=== PATIENT | male | born 1955 | race Two or more races ===

== ENCOUNTER 2016-06-05 22:00 | Inpatient (IN) | payer SELFPAY ==
[~2016-06-05] VITALS: Ht 180.3 cm; Wt 101.5 kg
[2016-06-05] MEDS ORDERED: ACETAMINOPHEN 325 MG TAB PO ONE (23:15)
[2016-06-06 00:04] LABS: Urine Bilirubin Negative (Negative); Urine Color Yellow (Yellow); Urine Nitrite Negative (Negative); Urine RBC 2 /hpf (0 - 3); Urine Squamous Epithelial Cell FEW /hpf (<5); Urine Urobilinogen Normal (Negative); Urine pH 5.5 (5.0-8.0)
[2016-06-06 00:04] LABS: Basophils # (auto) 0 uL; Basophils % (auto) 0.3 % (0.0-2.0); DEFINITIVE VIEW TRANSMISSION; Eosinophils # (auto) 0.1 uL; Eosinophils % (auto) 0.5 % (0.0-7.0); Hematocrit 40.7 % (41.0-53.0); Hemoglobin 13.3 g/dL (13.5-17.5); Lymphocytes # (auto) 1.1 uL; Lymphocytes % (auto) 9.2 % (10.0-50.0); Mean Corpuscular Hemoglobin 25.4 pg (28.0-32.0); Mean Corpuscular Hgb Conc. 32.8 g/dL (32.0-36.0); Mean Corpuscular Volume 77.5 fL (80.0-100.0); Mean Platelet Volume 7.3 fL (7.4-10.4); Monocytes # (auto) 0.7 uL; Monocytes % (auto) 5.6 % (0.0-12.0); Neutrophils # (auto) 10.2 uL; Neutrophils % (auto) 84.4 % (37.0-80.0); Platelet Count (auto) 425 10^3/uL (140-450); Red Cell Distribution Width 13.3 % (11.6-16.0); White Blood Cell 12.1 10^3/uL (4.4-10.8)
[2016-06-06 00:07] LABS: Urine Blood 1+ /uL (Negative); Urine Glucose 4+ mg/dL (Normal); Urine Ketone 2+ (Negative)
[2016-06-06 00:19] LABS: INR 0.95 (0.9-1.15); Partial Thromboplastin Time 26.6 sec (22.64-33.71); Prothrombin Time 10.3 sec (9.37-12.3)
[2016-06-06 00:25] LABS: Albumin 2.8 g/dL (3.4-5.0); Anion Gap 10 (5-15); Aspartate Aminotransferase 10 U/L (15-37); BUN/Creatinine Ratio 17.1; Blood Urea Nitrogen 25 mg/dL (7-18); Calcium 8.3 mg/dL (8.5-10.1); Carbon Dioxide 23 mmol/L (21-32); Chloride 99 mmol/L (98-107); GFR African American 63 mL/min; GFR Non-African American 52 mL/min; Glucose 358 mg/dL (74-106); Potassium 4.3 mmol/L (3.5-5.1); Sodium 132 mmol/L (136-145)
[2016-06-06 00:30] LABS: Alkaline Phosphatase 73 U/L (45-117); Bilirubin, Total 0.4 mg/dL (0.2-1.0); Total Protein 8.2 g/dL (6.4-8.2)
[2016-06-06 00:37] LABS: B-Type Natriuretic Peptide 67.5 pg/mL (0-100); Temperature: 21.9 C (20.0-25.0)
[2016-06-06] MEDS ORDERED: cefTRIAXone 1GM/50ML D5W 50 ML IV ONE (00:45)
[2016-06-06] MEDS ORDERED: SODIUM CHLORIDE 0.9% 1,000 ML IV ONE (00:45)
[2016-06-06] MEDS ORDERED: VANCOMYCIN 1GM/250ML D5W 250 ML IV ONE (00:45)
[2016-06-06] MEDS ORDERED: InsuLIN REG 1unit/0.01ml Soln (100units/ml) ONE (02:03)
[2016-06-06] MEDS ORDERED: InsuLIN REG 1unit/0.01ml Soln (100units/ml) IV ONE (02:15)
[2016-06-06] MEDS: SODIUM CHLORIDE 0.9% 1,000 ML IV SCH ×2 (06:56→21:14)
[2016-06-06] MEDS ORDERED: DEXTROSE (50%) 50ML SYRG IV PRN (07:00)
[2016-06-06] MEDS ORDERED: MORPHINE SULF INJ 2 MG/ML SYRINGE 1ML IV PRN (07:00)
[2016-06-06] MEDS ORDERED: ONDANSETRON HCL 4 MG/2 ML VIAL IV PRN (07:00)
[2016-06-06] MEDS ORDERED: HYDROcodone-ACET 5/325MG TAB PO PRN (07:00)
[2016-06-06] MEDS ORDERED: ACETAMINOPHEN 325 MG TAB PO PRN (07:00)
[2016-06-06] MEDS: InsuLIN REG 1unit/0.01ml Soln (100units/ml) SC SCH ×4 (08:00→21:02)
[2016-06-06] MEDS: ACCU-CHEK COMFORT CURVE STRIP VI SCH ×4 (08:00→21:13)
[2016-06-06 09:00] VITALS: BP 144/71
[2016-06-06] MEDS ORDERED: IBUP200T76 PO (09:35)
[2016-06-06] MEDS ORDERED: INFLUENZA QUAD 2016-2017 0.5 ML SYRG IM ONE (09:45)
[2016-06-06] MEDS ORDERED: PNEUMOCOCCAL VACC POLYS 25 MCG/0.5 ML VIAL IM ONE (09:45)
[2016-06-06] MEDS: FAMOTIDINE 20 MG TAB PO SCH ×2 (09:46→21:14)
[2016-06-06] MEDS: ENOXAPARIN SOD 40 MG/0.4 ML SYRINGE SC SCH (09:46)
[2016-06-06] MEDS ORDERED: VANCOMYCIN PER PHARMACY 0 MG IV SCH (12:00)
[2016-06-06 13:00] VITALS: BP 147/74
[2016-06-06] MEDS: VANCOMYCIN 1GM/250ML D5W 250 ML IV SCH (14:44)
[2016-06-06 17:10] VITALS: BP 143/69
[2016-06-06 22:00] VITALS: BP 123/58
[2016-06-07] MEDS: ACCU-CHEK COMFORT CURVE STRIP VI SCH ×6 (00:41→20:29)
[2016-06-07] MEDS: cefTRIAXone 1GM/50ML D5W 50 ML IV SCH (00:50)
[2016-06-07] MEDS: VANCOMYCIN 1GM/250ML D5W 250 ML IV SCH ×2 (02:10→14:01)
[2016-06-07] MEDS: InsuLIN REG 1unit/0.01ml Soln (100units/ml) SC SCH ×6 (04:27→20:30)
[2016-06-07 05:30] VITALS: BP 133/77
[2016-06-07 07:05] LABS: Basophils # (auto) 0 uL; Basophils % (auto) 0.4 % (0.0-2.0); DEFINITIVE VIEW TRANSMISSION; Eosinophils # (auto) 0.1 uL; Eosinophils % (auto) 1.3 % (0.0-7.0); Hematocrit 36.6 % (41.0-53.0); Hemoglobin 11.9 g/dL (13.5-17.5); Lymphocytes # (auto) 1.4 uL; Lymphocytes % (auto) 15.8 % (10.0-50.0); Mean Corpuscular Hemoglobin 25.5 pg (28.0-32.0); Mean Corpuscular Hgb Conc. 32.5 g/dL (32.0-36.0); Mean Corpuscular Volume 78.4 fL (80.0-100.0); Mean Platelet Volume 7.6 fL (7.4-10.4); Monocytes # (auto) 0.6 uL; Monocytes % (auto) 6.7 % (0.0-12.0); Neutrophils # (auto) 6.5 uL; Neutrophils % (auto) 75.8 % (37.0-80.0); Platelet Count (auto) 350 10^3/uL (140-450); Red Cell Distribution Width 13.5 % (11.6-16.0); White Blood Cell 8.6 10^3/uL (4.4-10.8)
[2016-06-07 07:21] LABS: Potassium 3.8 mmol/L (3.5-5.1)
[2016-06-07 07:29] LABS: Albumin 2.2 g/dL (3.4-5.0); BUN/Creatinine Ratio 19.3; Bilirubin, Total 0.3 mg/dL (0.2-1.0); Total Protein 6.8 g/dL (6.4-8.2)
[2016-06-07 08:00] VITALS: BP 123/73
[2016-06-07 09:00] VITALS: BP 154/82
[2016-06-07] MEDS: FAMOTIDINE 20 MG TAB PO SCH ×2 (09:27→21:12)
[2016-06-07] MEDS: ENOXAPARIN SOD 40 MG/0.4 ML SYRINGE SC SCH (09:28)
[2016-06-07] MEDS: SODIUM CHLORIDE 0.9% 1,000 ML IV SCH (11:29)
[2016-06-07 13:00] VITALS: BP 111/51
[2016-06-07 17:00] VITALS: BP 132/69
[2016-06-07 22:20] VITALS: BP 116/59
[2016-06-08] MEDS: ACCU-CHEK COMFORT CURVE STRIP VI SCH ×4 (00:17→11:29)
[2016-06-08] MEDS: InsuLIN REG 1unit/0.01ml Soln (100units/ml) SC SCH ×4 (00:18→11:29)
[2016-06-08] MEDS: cefTRIAXone 1GM/50ML D5W 50 ML IV SCH (01:00)
[2016-06-08] MEDS: VANCOMYCIN 1GM/250ML D5W 250 ML IV SCH ×2 (02:58→14:00)
[2016-06-08] MEDS: SODIUM CHLORIDE 0.9% 1,000 ML IV SCH (02:58)
[2016-06-08 05:07] VITALS: BP 135/67
[2016-06-08 07:30] VITALS: BP 148/92
[2016-06-08 09:00] VITALS: BP 148/102
[2016-06-08] MEDS: FAMOTIDINE 20 MG TAB PO SCH (11:21)
[2016-06-08] MEDS: ENOXAPARIN SOD 40 MG/0.4 ML SYRINGE SC SCH (11:21)
[2016-06-08] MEDS ORDERED: PIPERACILLIN-TAZOB 3.375GM/D5W100ML IV SCH (12:00)
[2016-06-08 13:00] VITALS: BP 147/80
[2016-06-08] MEDS ORDERED: cefTAZidime 2 GM in D5W 5% 100 ML IV SCH (14:00)
== END 2016-06-08 14:10 | disposition home or self-care (01) | DRG 638 ==
LOC: ER 22:06 → OVERFLOW 22:07 → EAST 06-06 08:12
PROVIDERS: ADMIT Nurse Practitioner; ATTEND Family Medicine
PROC: 3E0234Z Introduction of Serum, Toxoid and Vaccine into Muscle, Percutaneous Approach (ICD-10-PCS; principal; 2016-06-06)
DX: E11.621 Type 2 diabetes mellitus with foot ulcer (principal); L03.115 Cellulitis of right lower limb; E13.10 Other specified diabetes mellitus with ketoacidosis without coma; L97.519 Non-pressure chronic ulcer of other part of right foot with unspecified severity; Z23 Encounter for immunization; E87.6 Hypokalemia; E11.40 Type 2 diabetes mellitus with diabetic neuropathy, unspecified; E11.51 Type 2 diabetes mellitus with diabetic peripheral angiopathy without gangrene
CPT/HCPCS: 36415; 71010; 73700; 80053; 80202; 81001; 82010; 82962; 83036; 83605; 83880; 84484; 85025; 85610; 85730; 87040; 87077; 87186; 87205; 93005; 93923; 96365; 96367; 96375; J0696; J1815; J2543; J7060

== ENCOUNTER → 2016-07-12 | Emergency (ER) | payer SELFPAY ==
[~2016-07-12] VITALS: Ht 177.8 cm; Wt 81.6 kg
[~2016-07-12] MED LIST: ACETAMINOPHEN 325 MG TAB PO ONE; IBUP200T76 PO; SODIUM CHLORIDE 0.9% 1,000 ML IV ONE
[2016-07-12 19:21] LABS: Basophils # (auto) 0 uL; Basophils % (auto) 0.3 % (0.0-2.0); DEFINITIVE VIEW TRANSMISSION; Eosinophils # (auto) 0 uL; Eosinophils % (auto) 0.3 % (0.0-7.0); Hematocrit 37.8 % (41.0-53.0); Hemoglobin 12.4 g/dL (13.5-17.5); Lymphocytes # (auto) 1.1 uL; Lymphocytes % (auto) 9.8 % (10.0-50.0); Mean Corpuscular Hemoglobin 25.3 pg (28.0-32.0); Mean Corpuscular Hgb Conc. 32.9 g/dL (32.0-36.0); Mean Platelet Volume 6.6 fL (7.4-10.4); Monocytes # (auto) 0.6 uL; Monocytes % (auto) 5.4 % (0.0-12.0); Neutrophils # (auto) 9.4 uL; Neutrophils % (auto) 84.2 % (37.0-80.0); Platelet Count (auto) 471 10^3/uL (140-450); Red Cell Distribution Width 13.9 % (11.6-16.0); White Blood Cell 11.1 10^3/uL (4.4-10.8)
[2016-07-12 19:43] LABS: Albumin 3.1 g/dL (3.4-5.0); Anion Gap 10 (5-15); Aspartate Aminotransferase 11 U/L (15-37); BUN/Creatinine Ratio 19.5; Blood Urea Nitrogen 34 mg/dL (7-18); Calcium 8.8 mg/dL (8.5-10.1); Carbon Dioxide 27 mmol/L (21-32); Chloride 101 mmol/L (98-107); GFR African American 52 mL/min; GFR Non-African American 43 mL/min; Glucose 212 mg/dL (74-106); Magnesium 2.3 mg/dL (1.6-2.6); Sodium 138 mmol/L (136-145)
[2016-07-12 19:48] LABS: Alkaline Phosphatase 64 U/L (45-117); Bilirubin, Total 0.5 mg/dL (0.2-1.0); Total Protein 8.3 g/dL (6.4-8.2)
[2016-07-13 02:28] VITALS: BP 126/66
== END | disposition home or self-care (01) ==
LOC: ER 18:31
DX: J06.9 Acute upper respiratory infection, unspecified (principal); E11.65 Type 2 diabetes mellitus with hyperglycemia; E11.621 Type 2 diabetes mellitus with foot ulcer; E86.0 Dehydration; Z79.4 Long term (current) use of insulin
CPT/HCPCS: 36415; 71020; 80053; 82962; 83735; 84484; 85025; 87040; 93005; 96360

== ENCOUNTER 2016-08-09 22:15 | Inpatient (IN) | payer MEDICAID ==
[~2016-08-09] VITALS: Ht 180.3 cm; Wt 93.7 kg
[~2016-08-09 22:15] MED LIST changes: -ACETAMINOPHEN 325 MG TAB PO ONE; -SODIUM CHLORIDE 0.9% 1,000 ML IV ONE
[2016-08-09 23:37] LABS: Basophils # (auto) 0 uL; CONDITION AutoValidated; DEFINITIVE SEE PRINTOUT; Eosinophils # (auto) 0.1 uL; Eosinophils % (auto) 0.7 % (0.0-7.0); Hematocrit 34.8 % (41.0-53.0); Hemoglobin 11.4 g/dL (13.5-17.5); Lymphocytes # (auto) 0.9 uL; Lymphocytes % (auto) 6.2 % (10.0-50.0); Mean Corpuscular Hemoglobin 24.7 pg (28.0-32.0); Mean Corpuscular Hgb Conc. 32.9 g/dL (32.0-36.0); Mean Corpuscular Volume 75.1 fL (80.0-100.0); Monocytes # (auto) 0.8 uL; Monocytes % (auto) 5.8 % (0.0-12.0); Neutrophils # (auto) 12.6 uL; Neutrophils % (auto) 87.3 % (37.0-80.0); Platelet Count (auto) 620 10^3/uL (140-450); Red Cell Distribution Width 13.9 % (11.6-16.0); White Blood Cell 14.4 10^3/uL (4.4-10.8)
[2016-08-09 23:54] LABS: Albumin 2.6 g/dL (3.4-5.0); Anion Gap 9 (5-15); Aspartate Aminotransferase 18 U/L (15-37); Blood Urea Nitrogen 27 mg/dL (7-18); Calcium 8.7 mg/dL (8.5-10.1); Carbon Dioxide 26 mmol/L (21-32); Chloride 97 mmol/L (98-107); Magnesium 2.3 mg/dL (1.6-2.6); Potassium 5.2 mmol/L (3.5-5.1); Sodium 132 mmol/L (136-145)
[2016-08-09 23:55] LABS: BUN/Creatinine Ratio 17.6; Bilirubin, Total 0.3 mg/dL (0.2-1.0); GFR African American 60 mL/min; GFR Non-African American 50 mL/min; Total Protein 8.3 g/dL (6.4-8.2)
[2016-08-09 23:58] LABS: Alkaline Phosphatase 101 U/L (45-117)
[2016-08-10 00:05] LABS: Glucose 454 mg/dL (74-106)
[2016-08-10] MEDS ORDERED: SODIUM CHLORIDE 0.9% 1,000 ML IV ONE (06:30)
[2016-08-10] MEDS ORDERED: InsuLIN REG 1unit/0.01ml Soln (100units/ml) SC ONE (06:30)
[2016-08-10] MEDS ORDERED: HYDROcodone-ACET 5/325MG TAB PO PRN (10:30)
[2016-08-10] MEDS ORDERED: cefTRIAXone 1GM/50ML D5W 50 ML IV ONE (10:30)
[2016-08-10] MEDS ORDERED: ACETAMINOPHEN 325 MG TAB PO PRN (10:30)
[2016-08-10] MEDS ORDERED: CLINDAMYCIN 300MG IV 50 ML IV ONE (10:30)
[2016-08-10] MEDS ORDERED: DEXTROSE (50%) 50ML SYRG IV PRN (10:30)
[2016-08-10] MEDS ORDERED: ONDANSETRON HCL 4 MG/2 ML VIAL IV PRN (10:30)
[2016-08-10] MEDS ORDERED: DOCUSATE SOD 100 MG CAP PO PRN (10:30)
[2016-08-10] MEDS ORDERED: TEMAZEPAM 15 MG CAP PO PRN (10:30)
[2016-08-10] MEDS ORDERED: MORPHINE SULF INJ 2 MG/ML SYRINGE 1ML IV PRN (10:30)
[2016-08-10] MEDS: SODIUM CHLORIDE 0.9% 1,000 ML IV SCH (10:50)
[2016-08-10] MEDS: MULTIPLE VITAMIN TAB PO SCH (11:05)
[2016-08-10] MEDS: ASCORBIC ACID 500 MG TAB PO SCH ×2 (11:05→22:06)
[2016-08-10] MEDS: ZINC SULFATE 220 MG CAP PO SCH (11:05)
[2016-08-10] MEDS: ACCU-CHEK COMFORT CURVE STRIP VI SCH ×3 (11:19→22:06)
[2016-08-10] MEDS: InsuLIN REG 1unit/0.01ml Soln (100units/ml) SC SCH ×3 (11:19→22:06)
[2016-08-10] MEDS: Boost Glucose Control 8 Ounces PO SCH ×3 (12:00→22:00)
[2016-08-10 16:29] VITALS: BP 131/73
[2016-08-10 22:00] VITALS: BP 117/73
[2016-08-11] MEDS: SODIUM CHLORIDE 0.9% 1,000 ML IV SCH ×2 (03:47→22:23)
[2016-08-11 05:16] LABS: Basophils # (auto) 0 uL; Basophils % (auto) 0.3 % (0.0-2.0); CONDITION Y; DEFINITIVE SEE PRINTOUT; Eosinophils # (auto) 0.1 uL; Hemoglobin 10.8 g/dL (13.5-17.5); Lymphocytes # (auto) 1.7 uL; Lymphocytes % (auto) 16.5 % (10.0-50.0); Mean Corpuscular Hemoglobin 24.7 pg (28.0-32.0); Mean Corpuscular Hgb Conc. 32.7 g/dL (32.0-36.0); Mean Corpuscular Volume 75.4 fL (80.0-100.0); Mean Platelet Volume 6.8 fL (7.4-10.4); Monocytes % (auto) 9.8 % (0.0-12.0); Neutrophils # (auto) 7.3 uL; Neutrophils % (auto) 72.4 % (37.0-80.0); Platelet Count (auto) 565 10^3/uL (140-450); Red Cell Distribution Width 14.4 % (11.6-16.0); White Blood Cell 10.1 10^3/uL (4.4-10.8)
[2016-08-11 05:27] VITALS: BP 116/74
[2016-08-11 05:29] LABS: Prothrombin Time 10.9 sec (9.37-12.3)
[2016-08-11 05:43] LABS: Albumin 2.3 g/dL (3.4-5.0); Calcium 8.6 mg/dL (8.5-10.1); Potassium 4.9 mmol/L (3.5-5.1)
[2016-08-11 05:53] LABS: Bilirubin, Total 0.3 mg/dL (0.2-1.0); Total Protein 7.5 g/dL (6.4-8.2)
[2016-08-11] MEDS: Boost Glucose Control 8 Ounces PO SCH ×2 (06:00→12:21)
[2016-08-11 06:06] LABS: Urine Bilirubin Negative (Negative); Urine Blood Negative /uL (Negative); Urine Color Yellow (Yellow); Urine Hyaline Cast FEW /lpf (0 - 2); Urine Ketone Negative (Negative); Urine Mucus FEW (None Seen); Urine Nitrite Negative (Negative); Urine RBC 12 /hpf (0 - 3); Urine Squamous Epithelial Cell FEW /hpf (<5); Urine pH 5.5 (5.0-8.0)
[2016-08-11 06:14] LABS: Urine Glucose 4+ mg/dL (Normal)
[2016-08-11] MEDS: InsuLIN REG 1unit/0.01ml Soln (100units/ml) SC SCH ×4 (06:20→22:24)
[2016-08-11] MEDS: ACCU-CHEK COMFORT CURVE STRIP VI SCH ×4 (06:20→22:24)
[2016-08-11] MEDS: ASCORBIC ACID 500 MG TAB PO SCH ×2 (09:40→22:24)
[2016-08-11] MEDS: MULTIPLE VITAMIN TAB PO SCH (09:40)
[2016-08-11] MEDS: ZINC SULFATE 220 MG CAP PO SCH (09:40)
[2016-08-11] MEDS: cefTRIAXone 1GM/50ML D5W 50 ML IV SCH (09:40)
[2016-08-11 10:15] VITALS: BP 131/74
[2016-08-11 14:47] VITALS: BP 126/67
[2016-08-11] MEDS: CLINDAMYCIN 600MG IV 50 ML IV SCH ×2 (17:30→23:56)
[2016-08-11 18:11] VITALS: BP 112/58
[2016-08-11 22:00] VITALS: BP 138/69
[2016-08-11] MEDS: INSULIN DETEMIR(LEVEMIR) 1unit/0.01ml Soln (100units/ml) SC SCH (22:35)
[2016-08-12 05:30] VITALS: BP 130/76
[2016-08-12 06:50] LABS: Basophils # (auto) 0 uL; Basophils % (auto) 0.3 % (0.0-2.0); CONDITION Y; DEFINITIVE SEE PRINTOUT; Eosinophils # (auto) 0.2 uL; Eosinophils % (auto) 1.7 % (0.0-7.0); Hematocrit 31.6 % (41.0-53.0); Hemoglobin 10.4 g/dL (13.5-17.5); Lymphocytes # (auto) 1.3 uL; Lymphocytes % (auto) 13.8 % (10.0-50.0); Mean Corpuscular Hemoglobin 24.6 pg (28.0-32.0); Mean Corpuscular Hgb Conc. 32.9 g/dL (32.0-36.0); Mean Corpuscular Volume 74.8 fL (80.0-100.0); Monocytes # (auto) 0.7 uL; Monocytes % (auto) 7.7 % (0.0-12.0); Neutrophils % (auto) 76.5 % (37.0-80.0); Platelet Count (auto) 551 10^3/uL (140-450); White Blood Cell 9.1 10^3/uL (4.4-10.8)
[2016-08-12] MEDS: ACCU-CHEK COMFORT CURVE STRIP VI SCH ×4 (07:04→21:29)
[2016-08-12] MEDS: InsuLIN REG 1unit/0.01ml Soln (100units/ml) SC SCH ×4 (07:04→21:28)
[2016-08-12 07:12] LABS: BUN/Creatinine Ratio 24.5; Calcium 8.4 mg/dL (8.5-10.1); Potassium 4.6 mmol/L (3.5-5.1)
[2016-08-12 08:00] VITALS: BP_SYST 101; BP_SYST 132; BP_DIAS 44; BP_DIAS 70
[2016-08-12] MEDS: CLINDAMYCIN 600MG IV 50 ML IV SCH ×3 (08:23→23:33)
[2016-08-12] MEDS: cefTRIAXone 1GM/50ML D5W 50 ML IV SCH (09:49)
[2016-08-12] MEDS: ASCORBIC ACID 500 MG TAB PO SCH ×2 (10:00→21:32)
[2016-08-12] MEDS: ZINC SULFATE 220 MG CAP PO SCH (10:00)
[2016-08-12] MEDS: MULTIPLE VITAMIN TAB PO SCH (10:00)
[2016-08-12] MEDS ORDERED: ceFAZolin 1GM/50ML D5W 50 ML IV ONE (12:12)
[2016-08-12] MEDS ORDERED: fentaNYL CITRATE 100 MCG/2 ML VL ONE (12:22)
[2016-08-12] MEDS ORDERED: MIDAZOLAM HCL 1MG/1ML-2 ML VIAL ONE (12:22)
[2016-08-12] MEDS ORDERED: PROPOFOL 10 MG/ML 20 ML IV ONE (12:23)
[2016-08-12] MEDS: SODIUM CHLORIDE 0.9% 1,000 ML IV SCH (12:25)
[2016-08-12] MEDS ORDERED: HYDROmorphone HCL 2 MG/ML VL IV PRN (13:30)
[2016-08-12] MEDS ORDERED: ONDANSETRON HCL 4 MG/2 ML VIAL IV ONE (13:30)
[2016-08-12] MEDS ORDERED: hydrALAZINE HCL 20 MG/ML VL IV PRN (13:30)
[2016-08-12] MEDS ORDERED: ePHEDrine SULFATE 50 MG/ML AMP IV PRN (13:30)
[2016-08-12 14:53] VITALS: BP 145/74
[2016-08-12 16:30] VITALS: BP 129/83
[2016-08-12] MEDS: INSULIN DETEMIR(LEVEMIR) 1unit/0.01ml Soln (100units/ml) SC SCH (21:29)
[2016-08-12 22:46] VITALS: BP 154/61
[2016-08-13] VITALS (7 sets, daily range): BP systolic 118–136; BP diastolic 66–86
[2016-08-13] MEDS: SODIUM CHLORIDE 0.9% 1,000 ML IV SCH (05:05)
[2016-08-13] MEDS: ACCU-CHEK COMFORT CURVE STRIP VI SCH ×4 (06:58→21:41)
[2016-08-13] MEDS: InsuLIN REG 1unit/0.01ml Soln (100units/ml) SC SCH ×4 (06:58→21:41)
[2016-08-13] MEDS: CLINDAMYCIN 600MG IV 50 ML IV SCH ×2 (09:16→16:48)
[2016-08-13] MEDS: ZINC SULFATE 220 MG CAP PO SCH (09:16)
[2016-08-13] MEDS: MULTIPLE VITAMIN TAB PO SCH (09:16)
[2016-08-13] MEDS: ASCORBIC ACID 500 MG TAB PO SCH ×2 (09:16→21:15)
[2016-08-13] MEDS: cefTRIAXone 1GM/50ML D5W 50 ML IV SCH (10:32)
[2016-08-13] MEDS: metFORMIN HYDROCHLORIDE 500 MG TAB PO SCH (18:12)
[2016-08-13] MEDS: INSULIN DETEMIR(LEVEMIR) 1unit/0.01ml Soln (100units/ml) SC SCH (21:43)
[2016-08-14] MEDS: CLINDAMYCIN 600MG IV 50 ML IV SCH (00:52)
[2016-08-14 05:38] VITALS: BP 111/75
[2016-08-14] MEDS: ACCU-CHEK COMFORT CURVE STRIP VI SCH ×4 (06:18→21:26)
[2016-08-14] MEDS: InsuLIN REG 1unit/0.01ml Soln (100units/ml) SC SCH ×4 (06:18→21:27)
[2016-08-14] MEDS: metFORMIN HYDROCHLORIDE 500 MG TAB PO SCH ×2 (06:18→17:45)
[2016-08-14 08:00] VITALS: BP 130/85
[2016-08-14 09:05] VITALS: BP 130/85
[2016-08-14] MEDS: MULTIPLE VITAMIN TAB PO SCH (09:40)
[2016-08-14] MEDS: ZINC SULFATE 220 MG CAP PO SCH (09:40)
[2016-08-14] MEDS: cefTRIAXone 1GM/50ML D5W 50 ML IV SCH (09:40)
[2016-08-14] MEDS: ASCORBIC ACID 500 MG TAB PO SCH ×2 (09:40→21:26)
[2016-08-14] MEDS: INSULIN DETEMIR(LEVEMIR) 1unit/0.01ml Soln (100units/ml) SC SCH ×2 (09:42→21:26)
[2016-08-14] MEDS ORDERED: VANCOMYCIN PER PHARMACY 0 MG IV SCH (11:15)
[2016-08-14] MEDS ORDERED: ENOXAPARIN SOD 40 MG/0.4 ML SYRINGE SC ONE (11:15)
[2016-08-14] MEDS ORDERED: LIDOCAINE 1% HCL (LOCAL ANESTH.) INJ 20ML MDV ID ONE (12:00)
[2016-08-14] MEDS: VANCOMYCIN 1GM/250ML D5W 250 ML IV SCH ×3 (12:25→20:21)
[2016-08-14 13:07] VITALS: BP 148/85
[2016-08-14 17:18] VITALS: BP 136/85
[2016-08-14] MEDS: SODIUM CHLOR 0.9% PF (SALINE LOCK) 10ML VIAL IV SCH (21:26)
[2016-08-14 22:00] VITALS: BP 120/69
[2016-08-15] MEDS: VANCOMYCIN 1GM/250ML D5W 250 ML IV SCH ×3 (04:34→20:39)
[2016-08-15 05:12] VITALS: BP 132/71
[2016-08-15 06:17] LABS: Basophils # (auto) 0 uL; Basophils % (auto) 0.3 % (0.0-2.0); CONDITION Y; DEFINITIVE SEE PRINTOUT; Eosinophils # (auto) 0.2 uL; Eosinophils % (auto) 3.6 % (0.0-7.0); Hematocrit 31.1 % (41.0-53.0); Hemoglobin 10.3 g/dL (13.5-17.5); Lymphocytes # (auto) 1.2 uL; Lymphocytes % (auto) 17.3 % (10.0-50.0); Mean Corpuscular Hemoglobin 24.9 pg (28.0-32.0); Mean Corpuscular Hgb Conc. 33.2 g/dL (32.0-36.0); Mean Platelet Volume 6.9 fL (7.4-10.4); Monocytes # (auto) 0.5 uL; Monocytes % (auto) 7.5 % (0.0-12.0); Neutrophils # (auto) 4.9 uL; Neutrophils % (auto) 71.3 % (37.0-80.0); Platelet Count (auto) 580 10^3/uL (140-450); Red Cell Distribution Width 14.2 % (11.6-16.0); White Blood Cell 6.8 10^3/uL (4.4-10.8)
[2016-08-15 06:39] LABS: BUN/Creatinine Ratio 22.2; Calcium 8.4 mg/dL (8.5-10.1); Potassium 4.1 mmol/L (3.5-5.1)
[2016-08-15] MEDS: InsuLIN REG 1unit/0.01ml Soln (100units/ml) SC SCH ×4 (06:39→22:00)
[2016-08-15] MEDS: ACCU-CHEK COMFORT CURVE STRIP VI SCH ×4 (06:39→22:00)
[2016-08-15 08:30] VITALS: BP 150/80
[2016-08-15] MEDS: ENOXAPARIN SOD 40 MG/0.4 ML SYRINGE SC SCH (10:18)
[2016-08-15] MEDS: cefTRIAXone 1GM/50ML D5W 50 ML IV SCH (10:19)
[2016-08-15] MEDS: MULTIPLE VITAMIN TAB PO SCH (10:19)
[2016-08-15] MEDS: metFORMIN HYDROCHLORIDE 500 MG TAB PO SCH ×2 (10:19→18:17)
[2016-08-15] MEDS: ZINC SULFATE 220 MG CAP PO SCH (10:19)
[2016-08-15] MEDS: ASCORBIC ACID 500 MG TAB PO SCH ×2 (10:19→22:00)
[2016-08-15] MEDS: SODIUM CHLOR 0.9% PF (SALINE LOCK) 10ML VIAL IV SCH ×2 (10:20→23:08)
[2016-08-15] MEDS: INSULIN DETEMIR(LEVEMIR) 1unit/0.01ml Soln (100units/ml) SC SCH ×2 (10:32→22:00)
[2016-08-15 13:00] VITALS: BP 132/77
[2016-08-15 16:59] VITALS: BP 104/51
[2016-08-15 22:48] VITALS: BP 133/68
[2016-08-16] MEDS: VANCOMYCIN 1GM/250ML D5W 250 ML IV SCH ×3 (04:52→20:48)
[2016-08-16 05:50] VITALS: BP 127/72
[2016-08-16] MEDS: InsuLIN REG 1unit/0.01ml Soln (100units/ml) SC SCH ×4 (06:23→22:03)
[2016-08-16] MEDS: ACCU-CHEK COMFORT CURVE STRIP VI SCH ×4 (06:24→22:03)
[2016-08-16 08:52] VITALS: BP 124/65
[2016-08-16] MEDS: cefTRIAXone 1GM/50ML D5W 50 ML IV SCH (10:24)
[2016-08-16] MEDS: MULTIPLE VITAMIN TAB PO SCH (10:25)
[2016-08-16] MEDS: ZINC SULFATE 220 MG CAP PO SCH (10:25)
[2016-08-16] MEDS: SODIUM CHLOR 0.9% PF (SALINE LOCK) 10ML VIAL IV SCH ×2 (10:25→21:53)
[2016-08-16] MEDS: metFORMIN HYDROCHLORIDE 500 MG TAB PO SCH ×2 (10:25→17:46)
[2016-08-16] MEDS: ASCORBIC ACID 500 MG TAB PO SCH ×2 (10:25→22:03)
[2016-08-16] MEDS: ENOXAPARIN SOD 40 MG/0.4 ML SYRINGE SC SCH (10:25)
[2016-08-16] MEDS: INSULIN DETEMIR(LEVEMIR) 1unit/0.01ml Soln (100units/ml) SC SCH ×2 (10:35→22:04)
[2016-08-16 13:00] VITALS: BP 121/71
[2016-08-16 17:02] VITALS: BP 130/67
[2016-08-16 21:37] VITALS: BP 126/75
[2016-08-17] MEDS: VANCOMYCIN 1GM/250ML D5W 250 ML IV SCH ×3 (05:00→21:00)
[2016-08-17 05:19] VITALS: BP 111/65
[2016-08-17] MEDS: InsuLIN REG 1unit/0.01ml Soln (100units/ml) SC SCH ×4 (06:18→22:07)
[2016-08-17] MEDS: ACCU-CHEK COMFORT CURVE STRIP VI SCH ×4 (06:18→22:06)
[2016-08-17] MEDS: metFORMIN HYDROCHLORIDE 500 MG TAB PO SCH ×2 (07:35→17:17)
[2016-08-17] MEDS: cefTRIAXone 1GM/50ML D5W 50 ML IV SCH (08:17)
[2016-08-17 09:00] VITALS: BP 142/77
[2016-08-17] MEDS: ENOXAPARIN SOD 40 MG/0.4 ML SYRINGE SC SCH (09:31)
[2016-08-17] MEDS: ZINC SULFATE 220 MG CAP PO SCH (09:31)
[2016-08-17] MEDS: ASCORBIC ACID 500 MG TAB PO SCH ×2 (09:31→22:07)
[2016-08-17] MEDS: MULTIPLE VITAMIN TAB PO SCH (09:31)
[2016-08-17] MEDS: SODIUM CHLOR 0.9% PF (SALINE LOCK) 10ML VIAL IV SCH ×2 (09:31→21:50)
[2016-08-17] MEDS ORDERED: TEMAZEPAM 15 MG CAP PO PRN (10:00)
[2016-08-17] MEDS ORDERED: HYDROcodone-ACET 5/325MG TAB PO PRN (10:00)
[2016-08-17] MEDS ORDERED: MORPHINE SULF INJ 2 MG/ML SYRINGE 1ML IV PRN (10:00)
[2016-08-17] MEDS: INSULIN DETEMIR(LEVEMIR) 1unit/0.01ml Soln (100units/ml) SC SCH ×2 (11:28→22:06)
[2016-08-17 12:30] VITALS: BP 118/72
[2016-08-17 17:30] VITALS: BP 121/67
[2016-08-17 22:00] VITALS: BP 125/71
[2016-08-18] VITALS (7 sets, daily range): BP systolic 126–155; BP diastolic 68–87
[2016-08-18] MEDS: VANCOMYCIN 1,250 MG in D5W 5% 250 ML IV SCH ×2 (04:59→16:11)
[2016-08-18 06:30] LABS: Basophils # (auto) 0 uL; Basophils % (auto) 0.1 % (0.0-2.0); CONDITION Y; DEFINITIVE SEE PRINTOUT; Eosinophils # (auto) 0.3 uL; Eosinophils % (auto) 3.9 % (0.0-7.0); Hemoglobin 10.7 g/dL (13.5-17.5); Lymphocytes # (auto) 1.5 uL; Lymphocytes % (auto) 19.9 % (10.0-50.0); Mean Corpuscular Hemoglobin 24.3 pg (28.0-32.0); Mean Corpuscular Hgb Conc. 32.5 g/dL (32.0-36.0); Mean Corpuscular Volume 74.9 fL (80.0-100.0); Mean Platelet Volume 6.4 fL (7.4-10.4); Monocytes # (auto) 0.4 uL; Monocytes % (auto) 5.5 % (0.0-12.0); Neutrophils # (auto) 5.3 uL; Neutrophils % (auto) 70.6 % (37.0-80.0); Platelet Count (auto) 592 10^3/uL (140-450); Red Cell Distribution Width 14.7 % (11.6-16.0); White Blood Cell 7.5 10^3/uL (4.4-10.8)
[2016-08-18] MEDS: InsuLIN REG 1unit/0.01ml Soln (100units/ml) SC SCH ×4 (06:31→21:56)
[2016-08-18] MEDS: ACCU-CHEK COMFORT CURVE STRIP VI SCH ×4 (06:31→21:57)
[2016-08-18 06:49] LABS: BUN/Creatinine Ratio 23.9; Calcium 8.7 mg/dL (8.5-10.1); Potassium 4.4 mmol/L (3.5-5.1)
[2016-08-18] MEDS: metFORMIN HYDROCHLORIDE 500 MG TAB PO SCH ×2 (07:41→17:35)
[2016-08-18] MEDS: cefTRIAXone 1GM/50ML D5W 50 ML IV SCH (07:42)
[2016-08-18] MEDS: ASCORBIC ACID 500 MG TAB PO SCH ×2 (09:34→21:56)
[2016-08-18] MEDS: ZINC SULFATE 220 MG CAP PO SCH (09:34)
[2016-08-18] MEDS: MULTIPLE VITAMIN TAB PO SCH (09:34)
[2016-08-18] MEDS: SODIUM CHLOR 0.9% PF (SALINE LOCK) 10ML VIAL IV SCH ×2 (09:34→21:28)
[2016-08-18] MEDS: ENOXAPARIN SOD 40 MG/0.4 ML SYRINGE SC SCH (09:34)
[2016-08-18] MEDS: INSULIN DETEMIR(LEVEMIR) 1unit/0.01ml Soln (100units/ml) SC SCH ×2 (10:03→21:57)
[2016-08-18] MEDS ORDERED: FLUCONAZOLE 200MG/100ML 100 ML IV ONE (11:30)
[2016-08-19 05:00] VITALS: BP 114/66
[2016-08-19] MEDS: VANCOMYCIN 1,250 MG in D5W 5% 250 ML IV SCH ×3 (05:00→22:42)
[2016-08-19] MEDS: InsuLIN REG 1unit/0.01ml Soln (100units/ml) SC SCH ×4 (06:39→22:30)
[2016-08-19] MEDS: ACCU-CHEK COMFORT CURVE STRIP VI SCH ×4 (06:55→21:50)
[2016-08-19 08:00] VITALS: BP 114/66
[2016-08-19] MEDS: metFORMIN HYDROCHLORIDE 500 MG TAB PO SCH ×2 (08:59→17:21)
[2016-08-19 09:00] VITALS: BP 123/74
[2016-08-19] MEDS: SODIUM CHLOR 0.9% PF (SALINE LOCK) 10ML VIAL IV SCH ×2 (10:00→21:50)
[2016-08-19] MEDS: FLUCONAZOLE 200MG/100ML 100 ML IV SCH (10:28)
[2016-08-19] MEDS: ZINC SULFATE 220 MG CAP PO SCH (10:29)
[2016-08-19] MEDS: ASCORBIC ACID 500 MG TAB PO SCH ×2 (10:29→22:19)
[2016-08-19] MEDS: ENOXAPARIN SOD 40 MG/0.4 ML SYRINGE SC SCH (10:29)
[2016-08-19] MEDS: MULTIPLE VITAMIN TAB PO SCH (10:29)
[2016-08-19] MEDS: INSULIN DETEMIR(LEVEMIR) 1unit/0.01ml Soln (100units/ml) SC SCH ×2 (10:31→22:30)
[2016-08-19 13:00] VITALS: BP 126/76
[2016-08-19] MEDS ORDERED: MORPHINE SULFATE 4 MG/ML SYRG IV PRN (14:58)
[2016-08-19 16:33] VITALS: BP 125/77
[2016-08-19 22:00] VITALS: BP 113/72
[2016-08-20 05:30] VITALS: BP 117/76
[2016-08-20] MEDS: ACCU-CHEK COMFORT CURVE STRIP VI SCH ×4 (06:29→22:38)
[2016-08-20] MEDS: InsuLIN REG 1unit/0.01ml Soln (100units/ml) SC SCH ×4 (06:31→22:39)
[2016-08-20 07:15] LABS: Basophils # (auto) 0 uL; Basophils % (auto) 0.4 % (0.0-2.0); CONDITION Y; DEFINITIVE SEE PRINTOUT; Eosinophils # (auto) 0.3 uL; Hematocrit 33.3 % (41.0-53.0); Hemoglobin 10.7 g/dL (13.5-17.5); Lymphocytes # (auto) 1.6 uL; Lymphocytes % (auto) 25.7 % (10.0-50.0); Mean Corpuscular Hemoglobin 24.3 pg (28.0-32.0); Mean Corpuscular Hgb Conc. 32.2 g/dL (32.0-36.0); Mean Corpuscular Volume 75.4 fL (80.0-100.0); Mean Platelet Volume 6.7 fL (7.4-10.4); Monocytes # (auto) 0.4 uL; Monocytes % (auto) 6.5 % (0.0-12.0); Neutrophils # (auto) 3.9 uL; Neutrophils % (auto) 62.4 % (37.0-80.0); Platelet Count (auto) 534 10^3/uL (140-450); Red Cell Distribution Width 14.9 % (11.6-16.0); White Blood Cell 6.2 10^3/uL (4.4-10.8)
[2016-08-20 07:24] VITALS: BP 126/68
[2016-08-20 07:40] LABS: BUN/Creatinine Ratio 25.6; Calcium 8.8 mg/dL (8.5-10.1)
[2016-08-20 08:00] VITALS: BP 126/68
[2016-08-20] MEDS: metFORMIN HYDROCHLORIDE 500 MG TAB PO SCH ×2 (09:02→18:00)
[2016-08-20] MEDS: ASCORBIC ACID 500 MG TAB PO SCH ×2 (11:24→22:38)
[2016-08-20] MEDS: SODIUM CHLOR 0.9% PF (SALINE LOCK) 10ML VIAL IV SCH ×2 (11:25→22:38)
[2016-08-20] MEDS: MULTIPLE VITAMIN TAB PO SCH (11:25)
[2016-08-20] MEDS: ZINC SULFATE 220 MG CAP PO SCH (11:25)
[2016-08-20] MEDS: ENOXAPARIN SOD 40 MG/0.4 ML SYRINGE SC SCH (11:25)
[2016-08-20] MEDS: VANCOMYCIN 1,250 MG in D5W 5% 250 ML IV SCH (11:27)
[2016-08-20] MEDS: INSULIN DETEMIR(LEVEMIR) 1unit/0.01ml Soln (100units/ml) SC SCH ×2 (11:27→22:39)
[2016-08-20 13:10] VITALS: BP 128/69
[2016-08-20] MEDS: FLUCONAZOLE 200MG/100ML 100 ML IV SCH (15:07)
[2016-08-20 16:48] VITALS: BP 129/74
[2016-08-20 22:00] VITALS: BP 136/77
[2016-08-21] MEDS: VANCOMYCIN 1,250 MG in D5W 5% 250 ML IV SCH (02:20)
[2016-08-21 05:30] VITALS: BP 116/71
[2016-08-21] MEDS: ACCU-CHEK COMFORT CURVE STRIP VI SCH ×3 (06:38→17:00)
[2016-08-21] MEDS: InsuLIN REG 1unit/0.01ml Soln (100units/ml) SC SCH ×3 (06:38→18:02)
[2016-08-21] MEDS ORDERED: VANCOMYCIN 1GM/250ML D5W 250 ML IV SCH (07:00)
[2016-08-21] MEDS: metFORMIN HYDROCHLORIDE 500 MG TAB PO SCH ×2 (07:50→18:02)
[2016-08-21 08:00] VITALS: BP 133/75
[2016-08-21 09:09] VITALS: BP 126/72
[2016-08-21] MEDS: VANCOMYCIN 1GM/250ML D5W 250 ML IV SCH ×2 (10:20→18:02)
[2016-08-21] MEDS: ENOXAPARIN SOD 40 MG/0.4 ML SYRINGE SC SCH (10:23)
[2016-08-21] MEDS: ASCORBIC ACID 500 MG TAB PO SCH (10:23)
[2016-08-21] MEDS: ZINC SULFATE 220 MG CAP PO SCH (10:23)
[2016-08-21] MEDS: MULTIPLE VITAMIN TAB PO SCH (10:23)
[2016-08-21] MEDS: SODIUM CHLOR 0.9% PF (SALINE LOCK) 10ML VIAL IV SCH (10:24)
[2016-08-21] MEDS: INSULIN DETEMIR(LEVEMIR) 1unit/0.01ml Soln (100units/ml) SC SCH (10:25)
[2016-08-21] MEDS: FLUCONAZOLE 200MG/100ML 100 ML IV SCH (13:02)
[2016-08-21 13:10] VITALS: BP 133/75
[2016-08-21 16:33] VITALS: BP 135/80
[2016-08-21 18:06] VITALS: BP 135/80
== END 2016-08-21 18:45 | disposition home or self-care (01) | DRG 710 ==
LOC: EDBD 22:16 → ER 22:16 → OVERFLOW 22:17 → EDUNIT# 22:17 → WEST WING 08-10 14:55
PROVIDERS: ADMIT Internal Medicine; ATTEND Internal Medicine Pulmonary Disease
PROC: 0QBN0ZZ Excision of Right Metatarsal, Open Approach (ICD-10-PCS; 2016-08-12)
PROC: 0HRMXK3 Replacement of Right Foot Skin with Nonautologous Tissue Substitute, Full Thickness, External Approach (ICD-10-PCS; 2016-08-12)
PROC: 0Y6X0Z0 Detachment at Right 5th Toe, Complete, Open Approach (ICD-10-PCS; principal; 2016-08-12 12:21)
PROC: 02HV33Z Insertion of Infusion Device into Superior Vena Cava, Percutaneous Approach (ICD-10-PCS; 2016-08-14)
DX: A41.9 Sepsis, unspecified organism (principal); N17.0 Acute kidney failure with tubular necrosis; E43 Unspecified severe protein-calorie malnutrition; E11.21 Type 2 diabetes mellitus with diabetic nephropathy; E11.621 Type 2 diabetes mellitus with foot ulcer; E86.0 Dehydration; E87.1 Hypo-osmolality and hyponatremia; M86.171 Other acute osteomyelitis, right ankle and foot; D50.9 Iron deficiency anemia, unspecified; E11.22 Type 2 diabetes mellitus with diabetic chronic kidney disease; E11.65 Type 2 diabetes mellitus with hyperglycemia; E11.69 Type 2 diabetes mellitus with other specified complication; Z68.29 Body mass index [BMI] 29.0-29.9, adult; E66.01 Morbid (severe) obesity due to excess calories; E87.5 Hyperkalemia; I12.9 Hypertensive chronic kidney disease with stage 1 through stage 4 chronic kidney disease, or unspecified chronic kidney disease; L97.519 Non-pressure chronic ulcer of other part of right foot with unspecified severity; N18.3 Chronic kidney disease, stage 3 (moderate); Z82.49 Family history of ischemic heart disease and other diseases of the circulatory system; Z83.3 Family history of diabetes mellitus; E11.622 Type 2 diabetes mellitus with other skin ulcer; D75.89 Other specified diseases of blood and blood-forming organs; Z89.421 Acquired absence of other right toe(s); Z87.891 Personal history of nicotine dependence; Z79.899 Other long term (current) drug therapy
CPT/HCPCS: 36415; 71010; 73630; 73700; 80048; 80053; 80202; 81001; 82962; 83036; 83540; 83605; 83735; 84439; 84443; 84481; 84484; 85025; 85610; 85652; 87040; 87070; 87075; 87076; 87077; 87186; 87205; 93005; 93923; 96361; 96365; 96372; J0690; J0696; J1450; J1815; J2250; J2704; J3490; J7060

== ENCOUNTER 2017-11-30 17:51 | Inpatient (IN) | payer MEDICAID ==
[~2017-11-30] VITALS: Ht 177.8 cm; Wt 101.5 kg
[~2017-11-30 17:51] MED LIST changes: -IBUP200T76 PO; +METF-370 PO
[2017-11-30 18:58] LABS: Basophils # (auto) 0 uL; Eosinophils # (auto) 0 uL; Eosinophils % (auto) 0.3 % (0.0-7.0); Lymphocytes # (auto) 1.1 uL; Neutrophils % (auto) 81.1 % (37.0-80.0)
[2017-11-30 19:00] LABS: Basophils % (auto) 0.3 % (0.0-2.0); Hematocrit 40.5 % (41.0-53.0); Hemoglobin 13.4 g/dL (13.5-17.5); Lymphocytes % (auto) 10.7 % (10.0-50.0); Mean Corpuscular Hgb Conc. 33.1 g/dL (32.0-36.0); Mean Corpuscular Volume 78.5 fL (80.0-100.0); Monocytes # (auto) 0.7 uL; Monocytes % (auto) 7.6 % (0.0-12.0); Platelet Count (auto) 310 10^3/uL (140-450); Red Blood Cells 5.16 10^6/uL (4.5-5.90); Red Cell Distribution Width 13.8 % (11.8-14.3); White Blood Cell 9.9 10^3/uL (4.4-10.8)
[2017-11-30 19:15] LABS: Albumin 2.8 g/dL (3.4-5.0); Anion Gap 10 (5-15); Blood Urea Nitrogen 17 mg/dL (7-18); Calcium 8.1 mg/dL (8.5-10.1); Carbon Dioxide 22 mmol/L (21-32); Chloride 101 mmol/L (98-107); Glucose 388 mg/dL (74-106); Magnesium 2.2 mg/dL (1.6-2.6); Potassium 4.5 mmol/L (3.5-5.1); Sodium 133 mmol/L (136-145)
[2017-11-30 19:16] LABS: Alanine Aminotransferase 16 U/L (16-61); Aspartate Aminotransferase 10 U/L (15-37); GFR African American 59 mL/min; GFR Non-African American 49 mL/min
[2017-11-30 19:33] LABS: Alkaline Phosphatase 83 U/L (45-117); Bilirubin, Total 0.3 mg/dL (0.2-1.0); Total Protein 7.3 g/dL (6.4-8.2)
[2017-11-30] MEDS ORDERED: VANCOMYCIN 1GM/250ML 250 ML IV ONE (22:00)
[2017-11-30] MEDS ORDERED: cefTRIAXone 1GM/10ml IVPUSH 10 ML IV ONE (22:00)
[2017-11-30] MEDS ORDERED: InsuLIN REG 1unit/0.01ml Soln (100units/ml) IV ONE (23:30)
[2017-11-30 23:41] LABS: Urine Bacteria NONE SEEN /hpf (None Seen); Urine Blood 1+ /uL (Negative); Urine Specific Gravity 1.031 (1.001-1.035); Urine WBC <1 /hpf (0 - 3)
[2017-12-01] MEDS ORDERED: ONDANSETRON HCL 4 MG/2 ML VIAL IV PRN (03:30)
[2017-12-01] MEDS ORDERED: HYDROcodone-ACET 5/325MG TAB PO PRN (03:30)
[2017-12-01] MEDS ORDERED: DEXTROSE (50%) 50ML SYRG IV PRN (03:30)
[2017-12-01 05:17] VITALS: BP 154/85
[2017-12-01 05:44] VITALS: BP 154/85
[2017-12-01] MEDS: InsuLIN REG 1unit/0.01ml Soln (100units/ml) SC SCH ×4 (07:01→21:43)
[2017-12-01] MEDS: ACCU-CHEK COMFORT CURVE STRIP VI SCH ×4 (07:01→21:42)
[2017-12-01 08:40] LABS: Basophils # (auto) 0.1 uL; Eosinophils # (auto) 0 uL; Hematocrit 38.4 % (41.0-53.0); Hemoglobin 12.6 g/dL (13.5-17.5); Mean Corpuscular Hemoglobin 25.5 pg (28.0-32.0); Nucleated Red Blood Cells % 0.1 %
[2017-12-01 08:42] LABS: Basophils % (auto) 0.7 % (0.0-2.0); Eosinophils % (auto) 0.4 % (0.0-7.0); Lymphocytes # (auto) 1.1 uL; Lymphocytes % (auto) 10.9 % (10.0-50.0); Mean Corpuscular Hgb Conc. 32.9 g/dL (32.0-36.0); Mean Corpuscular Volume 77.4 fL (80.0-100.0); Monocytes # (auto) 0.8 uL; Monocytes % (auto) 8.3 % (0.0-12.0); Neutrophils % (auto) 79.7 % (37.0-80.0); Platelet Count (auto) 316 10^3/uL (140-450); Red Blood Cells 4.96 10^6/uL (4.5-5.90); Red Cell Distribution Width 14.1 % (11.8-14.3); White Blood Cell 10.1 10^3/uL (4.4-10.8)
[2017-12-01 08:53] LABS: BUN/Creatinine Ratio 13.7; Calcium 7.9 mg/dL (8.5-10.1); Potassium 3.9 mmol/L (3.5-5.1)
[2017-12-01 09:00] VITALS: BP 126/75
[2017-12-01] MEDS: LISINOPRIL 10 MG TAB PO SCH (09:02)
[2017-12-01] MEDS ORDERED: INFLUENZA QUAD 2018-2019 0.5 ML SYRG IM SCH (11:00)
[2017-12-01 11:46] LABS: INR 0.89 (0.9-1.15); Partial Thromboplastin Time 27.8 sec (23.78-33.04); Prothrombin Time 9.6 sec (9.27-12.13)
[2017-12-01 13:00] VITALS: BP 140/77
[2017-12-01] MEDS: ACETAMINOPHEN 500 MG TAB PO PRN (13:49)
[2017-12-01] MEDS ORDERED: VANCOMYCIN PER PHARMACY 0 MG IV SCH (14:00)
[2017-12-01] MEDS ORDERED: cefTRIAXone 1GM/10ml IVPUSH 10 ML IV ONE (14:00)
[2017-12-01] MEDS: VANCOMYCIN 1GM/250ML 250 ML IV SCH (14:43)
[2017-12-01 17:00] VITALS: BP 106/52
[2017-12-01] MEDS ORDERED: LIDOCAINE 1% HCL (LOCAL ANESTH.) INJ 20ML MDV ONE (17:43)
[2017-12-01] MEDS ORDERED: BACITRACIN INJ 50000 UNIT VIAL ONE (17:43)
[2017-12-01] MEDS ORDERED: METOCLOPRAMIDE HCL 5MG/ml INJ 2ml VIAL IV ONE (18:28)
[2017-12-01] MEDS ORDERED: ceFAZolin 1GM VL ONE (18:36)
[2017-12-01] MEDS ORDERED: metroNIDAZOLE 500MG/100ML 100 ML IV ONE (18:43)
[2017-12-01] MEDS ORDERED: fentaNYL CITRATE 100 MCG/2 ML VL ONE (18:44)
[2017-12-01] MEDS ORDERED: MIDAZOLAM HCL 1MG/1ML-2 ML VIAL ONE (18:45)
[2017-12-01] MEDS ORDERED: PROPOFOL 10 MG/ML 20 ML IV ONE (18:53)
[2017-12-01] MEDS ORDERED: MEPERIDINE HCL (50 MG/ML) 1 ML VIAL ONE (18:53)
[2017-12-01] MEDS ORDERED: ACCU-CHEK COMFORT CURVE STRIP VI ONE (19:15)
[2017-12-01] MEDS ORDERED: LABETALOL HCL 5 MG/ML 4ML SYRINGE IV PRN (19:15)
[2017-12-01] MEDS ORDERED: ONDANSETRON HCL 4 MG/2 ML VIAL IV ONE (19:15)
[2017-12-01] MEDS ORDERED: HYDROmorphone HCL 2 MG/ML VL IV PRN (19:15)
[2017-12-01] MEDS ORDERED: ePHEDrine SULFATE 50 MG/ML AMP IV PRN (19:15)
[2017-12-01] MEDS ORDERED: KETOROLAC TROMETH 30 MG/ML 1ML VIAL IV ONE (19:15)
[2017-12-01] MEDS ORDERED: MORPHINE SULFATE 4 MG/ML SYR/VIAL IV PRN (19:15)
[2017-12-01] MEDS ORDERED: MIDAZOLAM HCL 1MG/1ML-2 ML VIAL IV PRN (19:15)
[2017-12-01] MEDS ORDERED: MORPHINE SULFATE 4 MG/ML SYR/VIAL IV ONE (20:00)
[2017-12-01] MEDS: INSULIN LANTUS (GLARGINE) 1 /0.01ml (100units/ml) SC SCH (21:42)
[2017-12-01 22:00] VITALS: BP 135/79
[2017-12-02] MEDS: VANCOMYCIN 1GM/250ML 250 ML IV SCH ×2 (03:00→14:34)
[2017-12-02 05:15] VITALS: BP 137/71
[2017-12-02] MEDS: INSULIN LANTUS (GLARGINE) 1 /0.01ml (100units/ml) SC SCH ×2 (06:43→21:38)
[2017-12-02] MEDS: ACCU-CHEK COMFORT CURVE STRIP VI SCH ×4 (06:43→21:32)
[2017-12-02] MEDS: InsuLIN REG 1unit/0.01ml Soln (100units/ml) SC SCH ×4 (06:44→21:38)
[2017-12-02] MEDS: ACETAMINOPHEN 500 MG TAB PO PRN ×2 (06:45→21:36)
[2017-12-02 07:30] LABS: Albumin 2.2 g/dL (3.4-5.0); BUN/Creatinine Ratio 14.1; Calcium 7.8 mg/dL (8.5-10.1)
[2017-12-02 07:31] LABS: Bilirubin, Total 0.5 mg/dL (0.2-1.0); Total Protein 6.5 g/dL (6.4-8.2)
[2017-12-02 09:00] VITALS: BP 146/77
[2017-12-02] MEDS ORDERED: metFORMIN HYDROCHLORIDE 850 MG TAB PO ONE (09:15)
[2017-12-02] MEDS: LISINOPRIL 10 MG TAB PO SCH (09:35)
[2017-12-02] MEDS: cefTRIAXone 1GM/10ml IVPUSH 10 ML IV SCH (09:37)
[2017-12-02] MEDS ORDERED: ASPirin-EC 81 mg tab PO ONE (10:15)
[2017-12-02 13:00] VITALS: BP 157/80
[2017-12-02 17:00] VITALS: BP 180/96
[2017-12-02] MEDS: metFORMIN HYDROCHLORIDE 850 MG TAB PO SCH (17:50)
[2017-12-02] MEDS: METOPROLOL TARTRATE 25 MG TAB PO SCH (21:32)
[2017-12-02 21:42] VITALS: BP 146/76
[2017-12-02] MEDS ORDERED: ATORVASTATIN 20 MG TAB PO SCH (22:00)
[2017-12-03] MEDS: VANCOMYCIN 1GM/250ML 250 ML IV SCH (02:51)
[2017-12-03 05:14] VITALS: BP 157/80
[2017-12-03 05:56] LABS: Potassium 3.7 mmol/L (3.5-5.1)
[2017-12-03 06:06] LABS: Albumin 2.2 g/dL (3.4-5.0); BUN/Creatinine Ratio 16.7
[2017-12-03 06:11] LABS: Bilirubin, Total 0.4 mg/dL (0.2-1.0); Total Protein 6.8 g/dL (6.4-8.2)
[2017-12-03] MEDS: ACCU-CHEK COMFORT CURVE STRIP VI SCH ×2 (06:29→11:54)
[2017-12-03] MEDS: metFORMIN HYDROCHLORIDE 850 MG TAB PO SCH (06:29)
[2017-12-03] MEDS: InsuLIN REG 1unit/0.01ml Soln (100units/ml) SC SCH ×2 (06:29→11:54)
[2017-12-03] MEDS: INSULIN LANTUS (GLARGINE) 1 /0.01ml (100units/ml) SC SCH (06:30)
[2017-12-03 08:00] VITALS: BP 140/72
[2017-12-03 09:00] VITALS: BP 144/77
[2017-12-03] MEDS: cefTRIAXone 1GM/10ml IVPUSH 10 ML IV SCH (09:59)
[2017-12-03] MEDS ORDERED: ASPirin-EC 81 mg tab PO SCH (10:00)
[2017-12-03] MEDS: METOPROLOL TARTRATE 25 MG TAB PO SCH (10:00)
[2017-12-03] MEDS ORDERED: ENOXAPARIN SOD 40 MG/0.4 ML SYRINGE SC SCH (10:00)
[2017-12-03] MEDS: LISINOPRIL 10 MG TAB PO SCH (10:00)
[2017-12-03 13:00] VITALS: BP 136/81
[2017-12-03] MEDS ORDERED: ASP81EC PO (13:35)
[2017-12-03] MEDS ORDERED: LISI10TA6 PO (13:35)
[2017-12-03] MEDS ORDERED: INSLANTI SC (13:35)
[2017-12-03] MEDS ORDERED: ACE500T PO (13:35)
[2017-12-03] MEDS ORDERED: MET25T PO (13:35)
[2017-12-03] MEDS ORDERED: METF850T PO (13:35)
[2017-12-03] MEDS ORDERED: METR500T PO (13:35)
[2017-12-03] MEDS ORDERED: AMOX-263 PO (13:35)
[2017-12-03 13:55] VITALS: BP 136/81
[2017-12-03] MEDS ORDERED: VANCOMYCIN 1,250 MG in D5W 5% 250 ML IV SCH (15:00)
== END 2017-12-03 15:45 | disposition home health service (06) | DRG 197 ==
LOC: EDBD 17:51 → EDUNIT# 17:51 → ER 18:05 → CENTRAL 18:06
PROVIDERS: ADMIT Nurse Practitioner Family; ATTEND Internal Medicine
PROC: 0HDNXZZ Extraction of Left Foot Skin, External Approach (ICD-10-PCS; 2017-12-01)
PROC: 0HBNXZX Excision of Left Foot Skin, External Approach, Diagnostic (ICD-10-PCS; 2017-12-01)
PROC: 0Y9N0ZZ Drainage of Left Foot, Open Approach (ICD-10-PCS; principal; 2017-12-01 18:41)
DX: E11.52 Type 2 diabetes mellitus with diabetic peripheral angiopathy with gangrene (principal); A48.0 Gas gangrene; E11.621 Type 2 diabetes mellitus with foot ulcer; E44.0 Moderate protein-calorie malnutrition; L03.116 Cellulitis of left lower limb; E87.1 Hypo-osmolality and hyponatremia; E11.65 Type 2 diabetes mellitus with hyperglycemia; L97.529 Non-pressure chronic ulcer of other part of left foot with unspecified severity; I10 Essential (primary) hypertension; B95.61 Methicillin susceptible Staphylococcus aureus infection as the cause of diseases classified elsewhere; K21.9 Gastro-esophageal reflux disease without esophagitis; L02.612 Cutaneous abscess of left foot; Z79.4 Long term (current) use of insulin; Z82.49 Family history of ischemic heart disease and other diseases of the circulatory system; Z89.421 Acquired absence of other right toe(s); Z83.3 Family history of diabetes mellitus; Z91.19 Patient's noncompliance with other medical treatment and regimen
CPT/HCPCS: 36415; 71045; 73700; 80048; 80053; 80202; 81001; 82962; 83036; 83605; 83735; 84484; 85025; 85610; 85730; 87040; 87070; 87075; 87076; 87077; 87186; 87205; 93005; 93926; 96365; 96375; J0690; J0696; J1815; J2001; J2250; J2704; J3490; J7060